=== PATIENT | female | born 1945 | race Caucasian/White ===

== ENCOUNTER → 2017-04-13 | Outpatient (CLI) | payer OTHER | LOC: FIMAGING 14:28 | PROVIDERS: ATTEND Orthopaedic Surgery Orthopaedic Surgery of the Spine | DX: M43.16 Spondylolisthesis, lumbar region (principal); M16.11 Unilateral primary osteoarthritis, right hip ==

== ENCOUNTER → 2017-05-03 | Outpatient (CLI) | payer OTHER | LOC: FIMAGING 14:24 | PROVIDERS: ATTEND Physical Medicine & Rehabilitation Neuromuscular Medicine | DX: M41.9 Scoliosis, unspecified (principal); M43.16 Spondylolisthesis, lumbar region; M16.0 Bilateral primary osteoarthritis of hip ==

== ENCOUNTER → 2017-06-04 | Outpatient (CLI) | payer OTHER | LOC: FIMAGING 12:25 | PROVIDERS: ATTEND Obstetrics & Gynecology Gynecology | DX: Z13.820 Encounter for screening for osteoporosis (principal); M85.80 Other specified disorders of bone density and structure, unspecified site ==

== ENCOUNTER → 2017-06-06 | Outpatient (CLI) | payer OTHER | LOC: FIMAGING 13:13 | PROVIDERS: ATTEND Obstetrics & Gynecology Gynecology | DX: R93.8 Abnormal findings on diagnostic imaging of other specified body structures (principal) ==

== ENCOUNTER → 2017-07-09 | Outpatient (CLI) | payer OTHER | LOC: FIMAGING 14:08 | PROVIDERS: ATTEND Physician Assistant | DX: Z12.31 Encounter for screening mammogram for malignant neoplasm of breast (principal); Z85.3 Personal history of malignant neoplasm of breast; Z92.3 Personal history of irradiation | CPT/HCPCS: G0202 ==

== ENCOUNTER → 2018-06-14 | Outpatient (CLI) | payer OTHER | LOC: FIMAGING 14:46 | PROVIDERS: ATTEND Physician Assistant | DX: Z12.31 Encounter for screening mammogram for malignant neoplasm of breast (principal); Z80.3 Family history of malignant neoplasm of breast ==

== ENCOUNTER → 2018-07-09 | Outpatient (CLI) | payer OTHER | LOC: BHFA 13:30 | PROVIDERS: ATTEND Internal Medicine Cardiovascular Disease | DX: R07.9 Chest pain, unspecified (principal); I65.29 Occlusion and stenosis of unspecified carotid artery ==

== ENCOUNTER 2018-07-25 11:55 | Day surgery (SDC) | payer OTHER ==
[2018-07-25] MEDS ORDERED: DIAZEPAM 5 MG TAB PO ONE (11:59)
[2018-07-25] MEDS ORDERED: ASPIRIN EC 325 MG TAB PO ONE ×2 (11:59→12:58)
[2018-07-25] MEDS ORDERED: FAMOTIDINE 20 MG TAB PO ONE (11:59)
[2018-07-25] MEDS ORDERED: NS 1,000 ML IV ONE (11:59)
[2018-07-25] MEDS ORDERED: diphenhydrAMINE 25 MG CAP PO ONE ×2 (11:59→12:58)
[2018-07-25] MEDS ORDERED: FAMOTIDINE 20 MG TAB ONE (12:58)
[2018-07-25] MEDS ORDERED: DIAZEPAM 5 MG TAB ONE (12:59)
--- NOTE | 2018-07-25 13:03 | PDHPUP ---
History & Physical Update H&P update statement: This history and physical update is based on an assessment of the patient which was completed after admission or registration (within 24 hours), but prior to the surgery/procedure. H&P update: H&P reviewed & patient examined, no change in patient's condition since H&P completed (Class IV angina patient with high calcium score and resting chest discomfort), changes noted
--- NOTE | 2018-07-25 13:04 | PDPROPOC ---
Sedation Plan of Care Sedation Plan of Care: vital signs stable, mental status noted, patient educated of risks, benefits, alternatives, patient can tolerate sedation ASA Classification: ASA 3 Planned drugs: fentanyl, midazolam Mallampati Score: Class 3 Mallampati Reference Image: Patient passed 3-3-2 rule?: Yes
[2018-07-25] MEDS ORDERED: HEPARIN 10,000 UNIT/10 ML MDV (1,000 UNIT/ML) ONE (13:11)
[2018-07-25] MEDS ORDERED: MIDAZOLAM 2 MG/2 ML VIAL ONE ×2 (13:11→14:43)
[2018-07-25] MEDS ORDERED: fentaNYL 100 MCG/2 ML INJ ONE ×2 (13:11→14:43)
[2018-07-25] MEDS ORDERED: VERAPAMIL 5 MG/2 ML VIAL ONE (13:11)
[2018-07-25] MEDS ORDERED: IOPAMIDOL (ISOVUE-370) 150 ML BTL IV ONE (13:11)
[2018-07-25] MEDS ORDERED: LIDOCAINE 1% 300 MG/30 ML SDV ONE (13:11)
[2018-07-25 13:29] LABS: PLATELET COUNT 211 10^3/uL (150-400)
[2018-07-25 13:55] LABS: INR 1.01 (0.83-1.16); PROTIME(PATIENT) 13.5 SEC (12.0-15.0)
[2018-07-25] MEDS ORDERED: OXYCODONE/APAP 5/325 TAB PO PRN (15:57)
[2018-07-25] MEDS ORDERED: ONDANSETRON 4 MG/2 ML VIAL IVP PRN (15:57)
[2018-07-25] MEDS ORDERED: HYDROCODONE/APAP 5/325 TAB PO PRN (15:57)
[2018-07-25] MEDS ORDERED: NITROGLYCERIN 0.4 MG BTL SL PRN (15:57)
[2018-07-25] MEDS ORDERED: ATROPINE SULFATE 1 MG/10 ML SYR IVP PRN (15:57)
--- NOTE | 2018-07-25 16:10 | PDDXCAT ---
Diagnostic Cath Note - . 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 30% proximal lesion with JENIFER III flow to the distal vessel. There is a 40% stenosis of the second diagonal vessel st its takeoff from the LAD LCX: The left circumflex is 3 mm in size and has a 40% stenosis of the vessel proximally.... RCA: 3mm vessel and dominant vessel to PDA with 2 PLV branches and a long left atrial branch... There is JENIFER III flow with no flow limiting obstruction or thrombus. EDP: 15mmHg LVEF: hypercontractile and 75% ejection fraction Complications: none Closure method: TR Band Assessment: [place] vessel coronary disease without evidence of flow limiting obstruction. Normal ejection fraction with hypercontractile LV function. mildly elevated LVED pressure. Plan: Secondary prevention program to achieve an LDL cholesterol of less than 70mg/dL and non HDL cholesterol of less than 100mg/dL.
--- NOTE | 2018-07-26 12:11 | CPEKG ---
Test Reason : OPEN Blood Pressure : / mmHG Vent. Rate : 071 BPM Atrial Rate : 071 BPM P-R Int : 149 ms QRS Dur : 099 ms QT Int : 412 ms P-R-T Axes : 043 012 048 degrees QTc Int : 448 ms Sinus rhythm Confirmed by Jose Peck ([id number]) on 07/26/2018 12:11:04 PM Referred By: Confirmed By:Jose Peck
== END 2018-07-25 18:56 | disposition home or self-care (01) ==
LOC: FCATH 11:55
PROVIDERS: ATTEND Internal Medicine Cardiovascular Disease
PROC: 4A023N7 Measurement of Cardiac Sampling and Pressure, Left Heart, Percutaneous Approach (ICD-10-PCS; principal; 2018-07-25)
PROC: B2151ZZ Fluoroscopy of Left Heart using Low Osmolar Contrast (ICD-10-PCS; principal; 2018-07-25)
DX: I25.10 Atherosclerotic heart disease of native coronary artery without angina pectoris (principal); E03.9 Hypothyroidism, unspecified; M79.7 Fibromyalgia; Z85.3 Personal history of malignant neoplasm of breast
CPT/HCPCS: 93005; 93458; 93880; C1769; J1644; J2250; J3010; Q9967